=== PATIENT | male | born 1965 | race Hispanic/Latino ===

== ENCOUNTER 2018-07-12 07:44 | Emergency (ER) | payer SELFPAY ==
[2018-07-12] MEDS ORDERED: Ibuprofen 800 MG TAB ONE (08:09)
== END 2018-07-12 08:42 | disposition home or self-care (01) ==
LOC: BURERS 07:44
DX: J06.9 Acute upper respiratory infection, unspecified (principal); E11.9 Type 2 diabetes mellitus without complications; J45.909 Unspecified asthma, uncomplicated; F17.210 Nicotine dependence, cigarettes, uncomplicated; Z79.899 Other long term (current) drug therapy
CPT/HCPCS: 87081; 87430; 87804; 99283

== ENCOUNTER 2018-08-29 22:36 | Emergency (ER) | payer SELFPAY ==
[2018-08-29 23:00] LABS: Bilirubin Negative (Negative); Clarity Clear (Clear); Glucose, Urine (Dipstick) Negative (Negative); Leukocyte Negative (Negative); Nitrite Negative (Negative); Protein, Urine (Dipstick) Negative (Neg-Trace); Specific Gravity, Urine 1.015 (1.005-1.030); Urobilinogen 0.2 mg/dL (0.2-1.0)
[2018-08-29 23:01] LABS: Blood, Urine Trace (Negative)
[2018-08-29 23:05] LABS: WBC/HPF None Seen HPF (0-3)
[2018-08-29 23:06] LABS: Bacteria/HPF Rare-Few HPF (None Seen); Squamous Epithelial None Seen HPF (0-3)
[2018-08-29] MEDS ORDERED: Ketorolac Tromethamine 60 MG/2 ML VIAL ONE (23:25)
== END 2018-08-29 23:30 | disposition home or self-care (01) ==
LOC: BURERS 22:36
DX: M54.5 Low back pain (principal); R31.29 Other microscopic hematuria; E11.9 Type 2 diabetes mellitus without complications; J45.909 Unspecified asthma, uncomplicated; F17.210 Nicotine dependence, cigarettes, uncomplicated; Z79.899 Other long term (current) drug therapy
CPT/HCPCS: 81003; 81015; 96372; J1885

== ENCOUNTER 2023-04-13 09:03 | Outpatient (CLI) | payer MEDICARE | END 2023-04-13 09:04 | disposition home or self-care (01) | LOC: BURRAD 09:03 | PROVIDERS: ATTEND Family Medicine | DX: M54.6 Pain in thoracic spine (principal) | CPT/HCPCS: 71046 ==